=== PATIENT | female | born 1950 | race Caucasian/White ===

== ENCOUNTER → 2016-12-15 12:51 | Outpatient (CLI) | payer MEDICARE, OTHER ==
[2012-07-24 12:37] VITALS: BMI 25.9
== END | disposition home or self-care (01) ==
LOC: D.RAD 12:51
DX: R13.12 Dysphagia, oropharyngeal phase (principal)

== ENCOUNTER → 2017-03-16 08:59 | Outpatient (CLI) | payer MEDICARE, OTHER ==
[2012-07-24 12:37] VITALS: BMI 25.9
== END | disposition home or self-care (01) ==
LOC: D.RAD 08:59
DX: R13.10 Dysphagia, unspecified (principal)

== ENCOUNTER → 2017-04-12 16:38 | Outpatient (CLI) | payer MEDICARE, OTHER ==
[2012-07-24 12:37] VITALS: BMI 25.9
== END | disposition home or self-care (01) ==
LOC: D.MAMMO 04-07 15:45
DX: Z12.31 Encounter for screening mammogram for malignant neoplasm of breast (principal)

== ENCOUNTER → 2017-09-02 14:12 | Outpatient (CLI) | payer MEDICARE, OTHER ==
[2012-07-24 12:37] VITALS: BMI 25.9
[~2017-09-02 14:12] MED LIST: ATARAX 25 MG TA25 MG PO; ELIQUIS2.5 MG PO; KEFLEX500 MG PO; LIPITOR20 MG PO; NEURONTIN 300300 MG PO; OMEPRAZOLE20 M1 PO; OXYCODONE HCL5 MG PO; ULTRAM50 MG PO
[2017-09-13 14:05] VITALS: BMI 25.6
== END | disposition home or self-care (01) ==
LOC: D.LABREF 14:12
DX: M16.11 Unilateral primary osteoarthritis, right hip (principal); Z11.8 Encounter for screening for other infectious and parasitic diseases

== ENCOUNTER 2017-09-06 10:00 | Inpatient (IN) | payer MEDICARE, OTHER ==
[~2017-09-06] VITALS: Ht 157.5 cm; Wt 63.6 kg
--- NOTE | ~2017-09-06 | OP ---
PATIENT NAME: ANNA DAVIDSON MEDICAL RECORD: [id number] :49 [facility] AD[facility] DATE:09/13/17 SURGEON: SAUMYA GALLARDO DO DATE OF OPERATION: 09/13/2017 PROCEDURE PERFORMED: Right total hip arthroplasty. 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 INDICATIONS: Ms. Davidson is a 67-year-old female who has been dealing with right hip pain for quite some time. She has left hip pain as well. She had x-rays, which showed some abnormalities and ended up getting an MRI. When she had the MRI, it showed a stage III avascular necrosis of the femoral head on the right and stage II on the left. I saw her in my office and had a mikey discussion with her. I offered her core decompressions ____ was slim to none, not very good at any rate. She started dealing with pain. She had such excruciating pain in her hip that she had to be carried at times. She started to dealing with and wanted something done surgically. I discussed a total hip arthroplasty with her and she said she wanted to have it done, the right one first due to it giving her more pain. DESCRIPTION OF PROCEDURE: The patient was given a block in the preoperative area and taken to the operative suite, laid in supine position, given general anesthetic, given Ancef preoperatively, and TXA. When she was positioned on the [place] table, the right hip was prepped and draped in a sterile fashion. A timeout was performed after everyone was in agreement for correct side, site and patient. After this was done, the incision began over the tensor fascia ruth, down to the fascia itself. This was incised and the muscle bellies taken posterior, fascia anteriorly with a large Adson Valencia and then the fascia over the rectus was incised and the Adson Valencia was adjusted taking the rectus medially and the tensor fascia ruth laterally. Careful dissection was then made down to the vessels of ascending branch of the lateral femoral circumflex. These were tied off and then coagulated on either sides of the ties with the Aquamantys and then divided with the plasma knife. Once this was done, the hip capsule was encountered and Hohmanns were placed on either side of the femoral neck. Capsulotomy was then performed and the capsule was tagged. The retractors then moved inside the capsule and more coagulation was done along the trochanteric line knowing there would be some bleeders there. Then the neck was cut after adding some traction and slight external rotation. The head was then removed and the pulvinar was cleaned out of the acetabulum and all bleeders were coagulated. The labrum was also removed at that time. We began reaming and reamed up to a 48, which seemed to be very good position. The 48 cup was then placed and seemed to be very solid. The liner was then put into place. The femur was then exposed and broaching began after canal finder and cookie cutter were used. Broaching began and broached up to an 11, it seemed to fit very well. We then trialed the size and decided to go with high offset and a -3 neck with a dual mobility head. Once this was done under x-ray to see that we had good position and good length of the femur that had been trialed, the implant was put into place and then the wound was thoroughly irrigated and then dried up. Any bleeders were coagulated at that time and Frank was then placed after the capsule was closed with the tag stitch of #2 Ethibond and then the fascia of the tensor fascia ruth was closed first with a urwhdd-ve-zjrez stitch of an 0 Vicryl, then 0 Vicryl was ran in order to close the fascia in a locking running OPERATIVE REPORT [id number] ANNA DAVIDSON stiabiodun. Then the rest of the Frank was placed. Any bleeders were coagulated at that time and then the skin was closed with 2-0 Vicryl in inverted interrupted fashion and a Prineo was used on the skin and closed it. Blood loss approximately 100 mL. COMPLICATIONS: None. TRANSINT:[id number] Voice Confirmation ID: [id number] DOCUMENT ID: [id number] SAUMYA GALLARDO DO at 1305 CC: [id number] DICTATION DATE: 09/13/17 1045 EDUCATIONAL MANAGER: 09/13/17 1229 ADM IN [place] [id number] [place] [address]
[2017-09-06] MEDS ORDERED: NEURONTIN 300300 MG PO (15:41)
[2017-09-06] MEDS ORDERED: ULTRAM50 MG PO (15:42)
[2017-09-06] MEDS ORDERED: OMEPRAZOLE20 M1 PO (15:42)
[2017-09-06] MEDS ORDERED: LIPITOR20 MG PO (15:42)
[2017-09-07 11:46] LABS: BASOPHILS 0.2 % (0-2); EOSINOPHILS 0.5 % (0-7); HEMATOCRIT 44.4 % (36.0-48.0); HEMOGLOBIN 14.9 g/dL (12-16); IMMATURE GRANULOCYTES 0.2 % (0-5); LYMPHOCYTES 35.2 % (15-50); MCH 32.2 pg (26.0-34.0); MCHC 33.6 g/dL (31.0-37.0); MCV 95.9 fL (80.0-100.0); MONOCYTES 8.5 % (2-11); NEUTROPHILS 55.4 % (40-80); PLATELET COUNT 216 10x3/uL (130-400); RBC 4.63 10x6/uL (4.00-5.40); RDW 13.2 % (11.5-14.5); WBC 4.1 10x3/uL (4.8-10.8)
[2017-09-07 12:00] LABS: APTT 34.5 SECONDS (22.8-39.4); PROTIME 12.8 SECONDS (11.6-15.0)
[2017-09-07 12:11] LABS: ANION GAP 13.2 mmol/L (8-16); CALCIUM 8.9 mg/dL (8.5-10.1); CARBON DIOXIDE 29.8 mmol/L (21.0-32.0)
[2017-09-07 12:32] LABS: APPEARANCE CLEAR (CLEAR); BILIRUBIN NEGATIVE (NEGATIVE); COLOR YELLOW (YELLOW); GLUCOSE NEGATIVE (NEGATIVE); KETONE NEGATIVE (NEGATIVE); NITRITE NEGATIVE (NEGATIVE); PROTEIN NEGATIVE (NEGATIVE); SPECIFIC GRAVITY 1.015 (1.005-1.020); UROBILINOGEN NORMAL (NORMAL)
[2017-09-13 06:33] VITALS: BP 156/78; BMI 25.6
[2017-09-13 14:05] VITALS: BP 115/57; Ht 157.5 cm; Wt 63.6 kg
[2017-09-13 20:00] VITALS: BP 110/55
[2017-09-13 20:05] VITALS: BP 112/56
[2017-09-14 00:05] VITALS: BP 110/55
[2017-09-14 04:00] VITALS: BP 108/48
[2017-09-14 06:48] LABS: HEMATOCRIT 35.8 % (36.0-48.0); HEMOGLOBIN 12.2 g/dL (12-16); MCH 32.6 pg (26.0-34.0); MCHC 34.1 g/dL (31.0-37.0); MCV 95.7 fL (80.0-100.0); MEAN PLATELET VOLUME 8.9 fL (7.4-10.4); RBC 3.74 10x6/uL (4.00-5.40); RDW 13.7 % (11.5-14.5); WBC 7.3 10x3/uL (4.8-10.8)
[2017-09-14 08:17] VITALS: BP 112/54
[2017-09-14 11:55] VITALS: BP 115/53
[2017-09-14 16:33] VITALS: BP 108/41
[2017-09-14 20:00] VITALS: BP 95/41
[2017-09-15 04:00] VITALS: BP 134/55
[2017-09-15 04:40] LABS: HEMATOCRIT 34.2 % (36.0-48.0); HEMOGLOBIN 11.5 g/dL (12-16); MCH 32.4 pg (26.0-34.0); MCHC 33.6 g/dL (31.0-37.0); MCV 96.3 fL (80.0-100.0); MEAN PLATELET VOLUME 9.3 fL (7.4-10.4); RBC 3.55 10x6/uL (4.00-5.40); RDW 13.7 % (11.5-14.5); WBC 5.9 10x3/uL (4.8-10.8)
[2017-09-15 08:38] VITALS: BP 114/54
[2017-09-15 11:46] VITALS: BP 118/53
[2017-09-15] MEDS ORDERED: ELIQUIS2.5 MG PO (12:44)
[2017-09-15] MEDS ORDERED: ATARAX 25 MG TA25 MG PO (12:44)
[2017-09-15] MEDS ORDERED: OXYCODONE HCL5 MG PO (12:45)
[2017-09-15] MEDS ORDERED: KEFLEX500 MG PO (12:45)
== END 2017-09-15 17:38 | disposition home or self-care (01) | DRG 470 ==
LOC: D.SDCHOLD 09-07 10:00 → D.MS 09-13 05:12 → D.SDCHOLD 09-13 05:12 → D.MS 09-13 13:17 → D.SDCHOLD 09-13 13:31 → D.MS 09-13 13:31
PROVIDERS: Orthopaedic Surgery
PROC: 0SR90JZ Replacement of Right Hip Joint with Synthetic Substitute, Open Approach (ICD-10-PCS; principal; 2017-09-13 07:30)
DX: M87.9 Osteonecrosis, unspecified (principal)

== ENCOUNTER → 2017-11-29 10:34 | Outpatient (CLI) | payer MEDICARE, OTHER ==
[2017-09-13 14:05] VITALS: BMI 25.6
== END | disposition home or self-care (01) ==
LOC: D.CT 10:34
DX: R10.9 Unspecified abdominal pain (principal)

== ENCOUNTER → 2018-02-27 16:52 | Outpatient (CLI) | payer MEDICARE, OTHER ==
[2017-09-13 14:05] VITALS: BMI 25.6
[~2018-02-27 16:52] MED LIST changes: +HYDROCODONE-APA1 TAB PO; +ZOFRAN ODT4 MG/UDTAB PO; +[UNRECOGNIZED DRUG - OTHER] PO
== END | disposition home or self-care (01) ==
LOC: D.MRI 16:52
DX: S83.221D Peripheral tear of medial meniscus, current injury, right knee, subsequent encounter (principal)

== ENCOUNTER 2018-03-03 05:35 | Day surgery (SDC) | payer MEDICARE, OTHER ==
[2018-03-02 11:36] LABS: HEMATOCRIT 41.9 % (36.0-48.0); HEMOGLOBIN 14.3 g/dL (12-16); MCH 32.6 pg (26.0-34.0); MCHC 34.1 g/dL (31.0-37.0); MCV 95.7 fL (80.0-100.0); MEAN PLATELET VOLUME 8.7 fL (7.4-10.4); RBC 4.38 10x6/uL (4.00-5.40); RDW 13.4 % (11.5-14.5); WBC 4.9 10x3/uL (4.8-10.8)
[2018-03-02 12:01] LABS: ALBUMIN 3.7 g/dL (3.4-5.0); ALKALINE PHOSPHATASE 109 U/L (46-116); ALT (SGPT) 23 U/L (10-68); CALC OSMOLALITY 280 mosm/kg (275-300); CARBON DIOXIDE 31.6 mmol/L (21.0-32.0); CHLORIDE - SERUM 102 mmol/L (98-107); CREATININE - SERUM 0.7 mg/dL (0.6-1.3); GLUCOSE 91 mg/dL (74-106); POTASSIUM - SERUM 3.7 mmol/L (3.5-5.1); PROTEIN - SERUM 7.4 g/dL (6.4-8.2); SODIUM 141 mmol/L (136-145); UREA NITROGEN 12 mg/dL (7-18); eGFR NON AFRICAN AMERICAN 88 mL/min (90-120)
[~2018-03-03] VITALS: Ht 157.5 cm; Wt 62.6 kg
--- NOTE | ~2018-03-03 | OP ---
PATIENT NAME: ANNA DAVIDSON MEDICAL RECORD: [id number] :48 LOCATION:[facility] ADMISSION DATE: SURGEON: SAUMYA GALLARDO DO DATE OF OPERATION: 03/03/2018 PROCEDURE PERFORMED: Right knee arthroscopy with partial medial and partial lateral meniscectomies. PREOPERATIVE DIAGNOSIS: Right knee medial meniscal tear. POSTOPERATIVE DIAGNOSIS: Medial and lateral meniscal tears of the right knee. INDICATIONS: Ms. Davidson is a 67-year-old female who has had right knee pain for quite some time. She has been having a buckle catch and pop and lock on her and she was tired to deal with the pain. She has tried all the methods of conservative management including injections, physical therapy. She was tired with dealing with pain. MRI was done, which showed a medial meniscal tear. Once this was done, we scheduled her for surgery today. She is aware of the risks and benefits of the procedure and was informed of the pre and postop protocols. She consented to the procedure. DESCRIPTION OF PROCEDURE: The patient was taken to the operative suite, laid in supine position, given gram Ancef preoperatively. The right lower extremity was prepped and draped in sterile fashion. Once this was prepped and draped, a timeout was performed and everyone was in agreeance with the correct side, site and patient and procedure. After that was done, the knee arthroscopy began with the lateral portal being started with an 11-blade scalpel and then the trocar was entered into the knee, up into the suprapatellar pouch and then the camera was inserted and the trocar was removed, and the knee scope began inspecting the suprapatellar pouch. No loose bodies were seen there. The lateral gutter was clear as well. Underneath the patella, mild chondromalacia was seen and then in the medial gutter there were no loose bodies. The knee was then flexed exposing the medial compartment. The meniscal tear was seen about two-thirds back on the inner aspect of the medial meniscus and the medial portal was established first with an 18-gauge spinal needle and then an 11-blade scalpel and then the meniscus was probed. A biter was used to chew out the tear into a stable position and the shaver was used to shave down the rest to a stable position. Once this was done, the cartilage was inspected on the medial femoral condyle and the tibial plateau on the medial side, which did not reveal any chondromalacia. The ACL was then probed and not seen to have a tear, was very taut. The probe was then parked in the posterolateral area of the knee and the knee was brought in [id number] position. The camera was then looked into the lateral compartment. The meniscus was probed and seen to be frayed on the inner aspect of the mid portion of the lateral meniscus and this was bite out with straight biter and the shaver. Once it was trimmed back to a stable position, the rest of the knee was inspected back up to the suprapatellar pouch. No loose bodies were seen. Then, the cartilage were checked in the trochlea. There was a small fraying seen in the cartilage of the trochlea and the shaver was brought to remove the loose cartilage piece that was seen in the medial compartment. After this was done, the water was turned off and the scope was withdrawn as well as a shaver and the portal sites were closed with 4-0 Monocryl in inverted interrupted fashion. Steri-Strips were placed over that; Adaptic, 4 x 4 and Tegaderm were then placed; a Webril, Mirza wrap were then placed over the knee and a DIAMOND hose was placed up to the knee. After this, the patient was awakened and taken to recovery in stable condition. OPERATIVE REPORT [id number] ANNA DAVIDSON COMPLICATIONS: None. BLOOD LOSS: Minimal. TRANSINT:[id number] Voice Confirmation ID: [id number] DOCUMENT ID: [id number] ASUMYA GALLARDO DO at 1408 CC: [id number] DICTATION DATE: 03/03/18 0758 MAGAZINE HAND: 03/03/18 1254 [facility] 03/03/18 [address] [place] [id number]
[~2018-03-03 05:35] MED LIST changes: -HYDROCODONE-APA1 TAB PO; -ZOFRAN ODT4 MG/UDTAB PO
[2018-03-03 05:58] VITALS: BP 170/71; Ht 157.5 cm; Wt 62.6 kg
[2018-03-03] MEDS ORDERED: ZOFRAN ODT4 MG/UDTAB PO (07:50)
[2018-03-03] MEDS ORDERED: HYDROCODONE-APA1 TAB PO (07:51)
== END 2018-03-03 09:54 | disposition home or self-care (01) ==
LOC: D.OPS 05:35 → D.PAN 07:30 → D.OPS 09:54
PROVIDERS: Anesthesiology
DX: S83.241A Other tear of medial meniscus, current injury, right knee, initial encounter (principal); X58.XXXA Exposure to other specified factors, initial encounter; Z01.812 Encounter for preprocedural laboratory examination; K21.9 Gastro-esophageal reflux disease without esophagitis

== ENCOUNTER → 2018-04-14 19:00 | Outpatient (CLI) | payer MEDICARE, OTHER ==
[2018-03-03 05:58] VITALS: BMI 25.3
[~2018-04-14 19:00] MED LIST changes: +HYDROCODONE-APA1 TAB PO; +ZOFRAN ODT4 MG/UDTAB PO
== END | disposition home or self-care (01) ==
LOC: D.MAMMO 11:30
DX: Z12.31 Encounter for screening mammogram for malignant neoplasm of breast (principal)

== ENCOUNTER 2019-05-08 09:00 | Outpatient (CLI) | payer MEDICARE, OTHER ==
[2018-03-03 05:58] VITALS: BMI 25.3
== END 2019-05-08 09:30 | disposition home or self-care (01) ==
LOC: D.MAMMO 09:00
PROVIDERS: ATTEND Family Medicine
DX: Z12.31 Encounter for screening mammogram for malignant neoplasm of breast (principal)